=== PATIENT | male | born 1970 | race Caucasian/White ===

== ENCOUNTER 2021-04-27 10:21 | Emergency (ER) | payer OTHER ==
[~2021-04-27 10:21] MED LIST: FLEXERIL5 MG PO; IBU600 MG PO
[2021-04-27 12:07] LABS: BASOPHIL 0.4 % (0-2); HCT 48.5 % (42.0-52.0); HGB 16.6 g/dl (13.2-18.0); LYMPHOCYTE 22.1 % (15-48); MCH 31.9 pg (25.0-31.0); MCHC 34.2 g/dL (32.0-36.0); MCV 93.3 fL (78.0-100.0); MONOCYTE 6.5 % (0-12); MPV 9.7 fL (6.0-9.5); NEUTROPHIL 69.7 % (41-80); NRBC 0; PLT 305 K/uL (150-400); RDW 12.5 % (11.5-14.0)
[2021-04-27 12:20] LABS: ALBUMIN 3.8 g/dL (3.4-5.0); BILIRUBIN - TOTAL 0.4 mg/dL (0.2-1.0); BUN/CREAT RATIO (CALC) 10.5 RATIO; CREATININE 1.05 mg/dL (0.67-1.17); GLOBULIN (CALCULATION) 3.7 g/dL; POTASSIUM 4.3 mmol/L (3.5-5.1); TOTAL PROTEIN 7.5 g/dL (6.4-8.2)
[2021-04-27 12:43] LABS: BILIRUBIN NEGATIVE (NEGATIVE); BLOOD NEGATIVE Ery/uL (NEGATIVE); CLARITY CLEAR (CLEAR); COLOR YELLOW (YELLOW); GLUCOSE (U) NORMAL (NORMAL); LEUKOCYTES NEGATIVE Leu/uL (NEGATIVE); NITRITE NEGATIVE (NEGATIVE); PROTEIN NEGATIVE (NEGATIVE); SPECIFIC GRAVITY 1.015 (1.001-1.030); UROBILINOGEN 0.2 mg/dL (0.2-1.0); pH 7.5 (5.0-9.0)
[2021-04-27] MEDS ORDERED: IMODIUM2 MG PO (15:50)
[2021-04-27] MEDS ORDERED: ZOFRAN4 M1 PO (15:50)
[2021-04-27] MEDS ORDERED: BENTYL10 MG PO (15:50)
[2021-04-29] MEDS ORDERED: TRELEGY ELLIPT1 EACH INH (11:16)
[2021-04-30] MEDS ORDERED: PROTONIX 40MG T40 MG PO (09:02)
== END 2021-04-27 16:09 | disposition home or self-care (01) ==
LOC: FER 10:21
PROVIDERS: Emergency Medicine
DX: K52.9 Noninfective gastroenteritis and colitis, unspecified (principal); R59.0 Localized enlarged lymph nodes; K63.89 Other specified diseases of intestine; J44.9 Chronic obstructive pulmonary disease, unspecified; F17.210 Nicotine dependence, cigarettes, uncomplicated
CPT/HCPCS: 36415; 80053; 81003; 84145; 85025; J1170; J2405; J7030; Q9967

== ENCOUNTER → 2021-04-30 | Day surgery (SDC) | payer OTHER ==
[~2021-04-30] VITALS: Ht 180.3 cm; Wt 106.1 kg
[~2021-04-30] MED LIST changes: +BENTYL10 MG PO; +IMODIUM2 MG PO; +PROTONIX 40MG T40 MG PO; +TRELEGY ELLIPT1 EACH INH; +ZOFRAN4 M1 PO
== END | disposition home or self-care (01) ==
LOC: FAS 06:58
DX: K50.00 Crohn's disease of small intestine without complications (principal); K63.5 Polyp of colon; K29.50 Unspecified chronic gastritis without bleeding; K21.00 Gastro-esophageal reflux disease with esophagitis, without bleeding; B96.81 Helicobacter pylori [H. pylori] as the cause of diseases classified elsewhere; J44.9 Chronic obstructive pulmonary disease, unspecified; M19.90 Unspecified osteoarthritis, unspecified site; F17.210 Nicotine dependence, cigarettes, uncomplicated; Z79.899 Other long term (current) drug therapy
CPT/HCPCS: 87449; J2704; J7120

== ENCOUNTER 2022-02-14 17:52 | Emergency (ER) | payer OTHER ==
[2022-02-14] MEDS ORDERED: FLEXERIL5 MG PO (21:21)
[2022-02-14] MEDS ORDERED: NAPROXEN500 MG PO (21:21)
== END 2022-02-14 21:28 | disposition home or self-care (01) ==
LOC: FER 17:52
DX: S46.811A Strain of other muscles, fascia and tendons at shoulder and upper arm level, right arm, initial encounter (principal); F17.210 Nicotine dependence, cigarettes, uncomplicated; J44.9 Chronic obstructive pulmonary disease, unspecified
CPT/HCPCS: 73030; J1885